=== PATIENT | male | born 1955 ===

== ENCOUNTER 2017-01-12 14:38 | Inpatient (IN) | payer BC ==
[~2017-01-12] VITALS: Ht 182.9 cm; Wt 85.3 kg
--- NOTE | ~2017-01-12 | WRIGHTHP ---
[place], [place] PATIENT HISTORY AND PHYSICAL EXAM [id number] UNIT #: [id number] ROOM: 312 DOCTOR: GENEVA DUMONT MD BIRTHDATE: [birth year] DOS: 01/13/2017 INITIAL PSYCHIATRIC EVALUATION CHIEF COMPLAINT: "I have just been so depressed, I am not myself." HISTORY OF PRESENT ILLNESS: This is a 61-year-old white male who presented to [facility] with complaints of increased depression with suicidal thoughts and a plan. The patient reports that he has been depressed for sometime, worsening in the last month. He felt that his best way out was to take a handful of pills in order to end it all. He also states that he has a voice in his head telling him to do this because he is a worthless human being. 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 PAST MEDICAL HISTORY: Remarkable for bradycardia and a cardiac pacemaker. MENTAL STATUS: The patient is alert and oriented. Mood is extremely depressed. Affect is flat and blunted with a constricted range. There is no hypomania or priti. He does endorse the positive suicidal ideation and he does endorse also auditory hallucinations. DIAGNOSIS: Major depression, recurrent with psychotic features, severe. PLAN: I have already started him on Remeron 15 mg at bedtime. I will augment with Vraylar 1.5 mg at bedtime, not only to combat the psychotic symptoms, but to improve his overall mood. Engage him in individual and núñez milieu activity, returning home when stable. GENEVA DUMONT MD CM:HISPHYS:PATIENT HISTORY AND PHYSICAL EXAMINATION [id number] GENEVA DUMONT MD 01/13/17 0937 interface
--- NOTE | ~2017-01-12 | PR ---
[place], [place] PROGRESS NOTE NAME: [facility] [id number] UNIT #: [id number] ROOM: 312 DOCTOR: GENEVA DUMONT MD BIRTHDATE: [birth year] DOS: 01/19/2017 CHIEF COMPLAINT: "I am feeling better, but the anxiety is really bad." SUMMARY OF THE VISIT: The patient was interviewed as he sat eating breakfast. He reports that his depression is lifting day by day, but his anxiety is consistent and it seems to be worsening. He notes that it tends to intensify around 2:00 or 3:00 in the afternoon, and when he gets the p.r.n. Ativan, it is only partially effective in relieving his anxiety. This is the worst part of his day. He reports that the medicines do seem to be helping and he denies any side effects from them. MENTAL STATUS: He is alert and oriented to person, place, and time. Mood does seem to be strongly trending towards euthymia and affect is much more appropriate. There are no symptoms of priti or hypomania. There are no overt auditory or visual hallucinations. No delusions, no paranoia. Memory is fully intact. PLAN: I will increase his Klonopin from 0.5 mg twice daily to 1 mg twice daily to try to prevent the anxiety from initiating itself. I will renew the Ativan p.r.n. in case he requires it. Continue to engage in individual and núñez milieu activity with the ultimate plan to return home when psychiatrically stable. GENEVA DUMONT MD CM:PNTRANS [id number] GENEVA DMUONT MD 01/19/17 1008 interface
--- NOTE | ~2017-01-12 | PR ---
[place], [place] PROGRESS NOTE [id number] UNIT #: [id number] ROOM: 312 DOCTOR: NIXON HAWKINS BIRTHDATE: [birth year] DOS: 01/17/2017 SUMMARY OF VISIT: The patient was assessed in the dining room where he engaged in conversation. It should be noted prior to me assessing him I was talking to another patient, but I was observing him, looking at him for depression, any abnormal behaviors, he was waiting patiently for me to address him next. When I did start talking to him; however, he started having the hiccups, which I observed and he had complained again of dry mouth and stating that he has had the hiccups for 2 days. I did not think anything of this at the time, but however, as I moved onto the next patient at the other end of the table I did observe him and he was not hiccupping but then when I came back to talk to him a little bit more the hiccups started again, so I do not know if this is just a behavior or if he truly just has hiccups under stress and anxiety being assessed if it comes out more, but he is stating that he has had the hiccups for 2 days along with a dry mouth. MENTAL STATUS: He is alert and oriented to person, place, approximate time. The patient is still saying that he is still somewhat depressed. PLAN: I am going to increase his Vraylar he is on 30 mg of Remeron right now at night. I am going to increase the Vraylar to 4.5 mg every day. We have ordered some biotin mouth moisturizer see if we can help send off some of the dry mouth and I have asked the nurses to have the hospitalist round on him and assess him and see if they want to start him on anything for the hiccups. We will continue to try to engage in individual and núñez milieu therapy with the plan to discharge once stable. TAMANNA HAWKINS CNP CM:PNTRANS 10 NIXON HAWKINS 01/17/171410 interface
--- NOTE | ~2017-01-12 | PR ---
[place], [place] PROGRESS NOTE NAME: KELBY ROLDAN UNIT #: [id number] ROOM: 312 DOCTOR: NIXON HAWKINS BIRTHDATE: [birth year] DOS: 01/18/2017 CHIEF COMPLAINT: "Good morning." SUMMARY OF VISIT: The patient was assessed in his room where he was lying in bed. His only complaint is that his eyes are little crusty and gooey. He did state that he has been diagnosed with seasonal allergies. I have requested the núñez milieu give him a warm compress to put in his eyes and then advised him to wash his eyes with just plain water and the warm compress to finish cleaning everything out. He is taking the biotin to help with the dry mouth as well. At no time, he has hiccups during my assessment and I assessed him for approximately 15 minutes. The nurses also state that the only time he has it is when he is being observed 1:1, so this may be a little bit of somatization. MENTAL STATUS: He is alert and oriented to person, place, and approximate time. Mood, it is trending towards euthymic, but he has got some weird behaviors coming out apparently in his dressing room where his dressing closet had to be locked yesterday, because when it was unlocked he pulled all his clothes out and through them all over the room. PLAN: I have increased his Vraylar yesterday and his Remeron is at 30. I am going to continue with the medications as if to see how he does over the next 24 hours and we can go from there. TAMANNA HAWKINS CNP CM:PNTRANS [id number] NIXON HAWKINS 01/18/17 175 interface
--- NOTE | ~2017-01-12 | PR ---
[place], [place] PROGRESS NOTE NAME[facility] [id number] UNIT #: [id number] ROOM: 312 DOCTOR: NIXON HAWKINS BIRTHDATE: [birth year] DOS: 01/14/2017 CHIEF COMPLAINT: "Good morning." SUMMARY OF VISIT: The patient was assessed in the dining room, where he engaged readily in conversation. He did state that he thought he did not sleep very well last night, but when he said something to nursing that they had mentioned that when they checked on him, he was sound asleep. He said they may be right, I don't know. No issues per nursing. MENTAL STATUS: He is alert and oriented to person, place, approximate time. Mood is still depressed. Affect is still flat, blunted, in a constricted range, denied any suicidal ideation with me. PLAN: We started him on Remeron last night. We will see how he does over the next 24 hours. I am going to bump up his Vraylar and see if I can help combat some of his depression, but also some of his mood issues. We will continue to try to engage in individual and núñez milieu therapy with the plan to discharge when stable. TAMANNA HAWKINS CNP CM:PNTRANS 0838 NIXON HAWKINS 01/15/17 0047 interface
--- NOTE | ~2017-01-12 | PR ---
[place], [place] PROGRESS NOTE NAME: KELBY ROLDAN UNIT #: [id number] ROOM: 312 DOCTOR: NIXON HAWKINS BIRTHDATE: [birth year] DOS: 01/15/2017 CHIEF COMPLAINT: "Good morning." SUMMARY OF VISIT: The patient was assessed in the dining room where he was waiting for breakfast. He engaged readily in conversation. He did state that his sleep was a little better last night. Denies any suicidal ideation or auditory or visual hallucinations. MENTAL STATUS: He is alert and oriented to person, place, approximate time. Mood, I think is still depressed, but he was pleased that he got a little bit better sleep. Affect is still flat, blunted in a constricted range. PLAN: Discussed with Dr. Kirkland. We are increasing his Remeron to 30 mg at bedtime, sometimes the male does need a higher dose of Remeron to be effective. We will keep his Vraylar at the 3 mg for now to help combat his depression and mood issues. We will continue to try to engage in individual and núñez milieu therapy with the plan to discharge once stable. TAMANNA HAWKINS CNP CM:ALLYSON [id number] NIXON HAWKINS 01/16/17 0100 interface
--- NOTE | ~2017-01-12 | PR ---
[place], [place] PROGRESS NOTE [id number] UNIT #: [id number] ROOM: 312 DOCTOR: NIXON HAWKINS BIRTHDATE: [birth year] DOS: 01/16/2017 CHIEF COMPLAINT: "Good morning." SUMMARY OF VISIT: The patient was assessed in the dining room where he was waiting for breakfast. He engaged in conversation. States that his sleep was good, denying any suicidal ideation or auditory or visual hallucinations at this time. MENTAL STATUS: He is alert and oriented to person, place, and approximate time. Mood still seems depressed. The patient is acknowledging the depression. PLAN: We did increase his Remeron last night; we need to allow a little time to see if this can have a positive effect. PLAN: Again, I increased his Remeron last night. He is on Vraylar as well 3 mg to help combat depression and mood issues. Want to see how he does over the next 24 hours if I need to I will increase the Vraylar tomorrow to see if we can get a handle on his depression. We will continue to try to engage in individual and núñez milieu therapy with the plan to discharge once stable. TAMANNA HAWKINS CNP CM:PNTRANS [id number] NIXON HAWKINS 01/17/17 0024 interface
--- NOTE | ~2017-01-12 | DS ---
[place], [place] DISCHARGE SUMMARY [facility] [id number] UNIT #: [id number] ROOM: 312 DOCTOR: GENEVA DUMONT MD BIRTHDATE: [birth year] DOS: 01/20/2017 CHIEF COMPLAINT: "I have been so depressed, I am not myself." HISTORY OF PRESENT ILLNESS: This is a 61-year-old white male who presented initially to [facility] with complaints of increased depression with suicidal thoughts and a plan. The patient had reported to them that he had been depressed for sometime, worsening in the last month prior to this admission. He felt that his best way out was to take a handful of pills in order to end all of his pain and suffering. He states that he has a voice in his head telling him to do this as well and the voice tells him that he is a worthless human being. 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 He is admitted to rule out any organic factors and to attempt to stabilize on medication. PAST MEDICAL HISTORY: Remarkable for bradycardia with a cardiac pacemaker insertion. SUMMARY OF HOSPITAL COURSE: The patient was admitted to the unit where he was started on Remeron 15 mg at bedtime to address the depressive symptoms and to rapidly aid sleep and appetite. This was augmented with Vraylar 1.5 mg at bedtime to make the antidepressant work faster and more effectively as well as to address the psychotic symptomatology. He continued to have sleep problems and appetite issues despite the initiation of these drugs. So, the Remeron was increased from 15 mg to 30 mg at bedtime and the Vraylar was gradually increased during his stay from 1.5 mg at bedtime to its ending dose of 4.5 mg at bedtime, also with good results. Towards the latter part of his stay, the patient did state that his depression improved and the voices abated; however, he continued to have overriding anxiety that was worse about midafternoon. During this period of time, he would become very outwardly agitated, pacing wildly, requiring p.r.n. intervention of Ativan usually with good results. The patient had been on Klonopin 0.5 mg b.i.d. upon admission. The dose was increased to 1 mg b.i.d., and within a day of increasing the dose, he noticed an almost immediately alleviation of the anxiety so much so that he felt that he could easily return home and continue his care as an outpatient. He voiced positive plans for the future and convincingly denied any suicidal thoughts. He reported no side effects from the medications themselves, noting no sedation, somnolence, or other side effect. The patient was discharged home then on 01/20/2017. MENTAL STATUS ON DISCHARGE: The patient is alert and oriented to person, place, and time. Mood was strongly trending towards euthymia and affect is much more appropriate. Speech rate and pattern are within normal limits. There is no priti or hypomania. There were no auditory or visual hallucinations. No delusions, no paranoia. Short, intermediate, and long-term memory was fully intact. FINAL DIAGNOSIS: Major depression, recurrent, severe, with psychotic features. [place], [place] DISCHARGE SUMMARY [facility] [id number] UNIT #: [id number] ROOM: 312 DOCTOR: GENEVA DUMONT MD BIRTHDATE: [birth year] PLAN: All of his prescriptions were sent to [facility] except for Klonopin, which was printed and will be sent with him. Follow up will be in the [facility] area. GENEVA DUMONT MD CM:DISCHYAO 2 [id number] GENEVA DUMONT MD 01/20/17 1234 interface
[2017-01-12] MEDS ORDERED: KLONOPIN0.5 MG PO (15:51)
[2017-01-12] MEDS ORDERED: RISPERDAL2 M1 PO (15:52)
[2017-01-12] MEDS ORDERED: METOPROLOL SUCC50 M2 PO (15:53)
[2017-01-12 16:43] VITALS: BP 166/83
[2017-01-12 17:28] VITALS: BP 166/83
[2017-01-12 20:44] VITALS: BP 138/84
[2017-01-13 07:56] VITALS: BP 143/76
[2017-01-13 08:06] LABS: BASO % 0.6 % (0.0-1.0); EOS # 0.1 10*3/uL (0.0-0.4); EOS % 1.4 % (1.0-4.0); HEMATOCRIT 43.2 % (42.0-52.0); HEMOGLOBIN 14.5 g/dl (14.0-18.0); LYMPH # 1.5 10*3/uL (1.3-4.4); LYMPH % 28.9 % (27.0-41.0); MEAN CELL VOLUME 92.5 fl (80.0-94.0); MEAN CORPUSCULAR HGB CONC 33.6 g/dl (33.0-37.0); MEAN PLATELET VOLUME 9.7 fl (9.6-12.3); MONO # 0.4 10*3/uL (0.1-1.0); MONO % 8.5 % (3.0-9.0); NEUT # 3.1 10*3/uL (2.3-7.9); NEUT % 60.4 % (47.0-73.0); PLATELET COUNT AUTOMATED 196 10*3/uL (130-400); RED BLOOD COUNT 4.67 10*6/uL (4.50-5.90); RED CELL DISTRI WIDTH 12.7 % (0-14.5); WHITE BLOOD COUNT 5.2 10*3/uL (4.8-10.8)
[2017-01-13 08:30] LABS: INTERNATIONAL NORM RATIO 1.1 (2.0-3.5); PROTHROMBIN TIME 11.9 SECONDS (9.0-12.4)
[2017-01-13 08:31] LABS: ALBUMIN 3.7 gm/dl (3.1-4.5); ALKALINE PHOSPHATASE 69 U/L (45-117); BILIRUBIN, TOTAL 0.6 mg/dl (0.2-1.0); BUN 19 mg/dl (7-24); CARBON DIOXIDE 30 mmol/L (21-32); CHLORIDE 108 mmol/L (98-107); CHOLESTEROL 172 mg/dL (<200); EST GLOM FILT AFRICAN AMERICAN > 60 ml/min; GLUCOSE 95 mg/dL (65-99); HDL CHOLESTEROL 59 mg/dl (40-60); LDL CHOLESTEROL 100 mg/dL (9-159); POTASSIUM 3.7 mmol/L (3.5-5.1); SGOT/AST 11 IU/L (3-35); SGPT/ALT 19 U/L (12-78); SODIUM 142 mmol/L (136-145); TRIGLYCERIDES 64 mg/dl (<150); VLDL CHOLESTEROL 13 mg/dL (6-40)
[2017-01-13 09:07] LABS: FOLIC ACID 19.37 ng/mL (>5.38); HEMOGLOBIN A1c 5.5 % (4.8-5.6); VITAMIN D, 25-HYDROXY 41.8 ng/mL (30-100)
[2017-01-13 20:35] VITALS: BP 129/60
[2017-01-14 07:53] VITALS: BP 119/60
[2017-01-14 20:03] VITALS: BP 138/64
[2017-01-15] MEDS ORDERED: Lopressor25 MG PO (07:38)
[2017-01-15 07:46] VITALS: BP 144/79
[2017-01-15 20:07] VITALS: BP 125/71
[2017-01-16] MEDS ORDERED: CLARITIN10 MG PO (00:27)
[2017-01-16] MEDS ORDERED: REFRESH PM1 OI1 OP (00:28)
[2017-01-16] MEDS ORDERED: REFRESH OPTIVE10 M1 OU (06:43)
[2017-01-16 07:58] VITALS: BP 118/70
[2017-01-16 19:40] VITALS: BP 143/65
[2017-01-17 07:40] VITALS: BP 112/69
[2017-01-17 19:53] VITALS: BP 130/68
[2017-01-18 07:43] VITALS: BP 118/69
[2017-01-18 21:09] VITALS: BP 138/61
[2017-01-19 07:42] VITALS: BP 107/59
[2017-01-19 20:42] VITALS: BP 124/51
[2017-01-20] MEDS ORDERED: VRAYLAR4.5 MG PO (08:06)
[2017-01-20] MEDS ORDERED: MIRTAZAPINE30 M2 PO (08:06)
[2017-01-20] MEDS ORDERED: BIOTENE MOIST44.3 ML PO (08:06)
[2017-01-20] MEDS ORDERED: CLONAZEPAM1 MG PO (08:06)
[2017-01-20 08:20] VITALS: BP 122/81
== END 2017-01-20 15:10 | disposition home or self-care (01) | DRG 885 ==
LOC: 3N 14:38
PROVIDERS: Hospitalist; Psychiatry & Neurology Psychiatry
DX: F33.3 Major depressive disorder, recurrent, severe with psychotic symptoms (principal); R45.851 Suicidal ideations; F41.9 Anxiety disorder, unspecified; J30.2 Other seasonal allergic rhinitis; Z72.89 Other problems related to lifestyle; Z95.0 Presence of cardiac pacemaker